=== PATIENT | male | born 1980 | race Caucasian/White ===

== ENCOUNTER 2020-03-22 15:28 | Outpatient (REF) | payer BC, SELFPAY | END 2020-03-22 15:29 | disposition home or self-care (01) | LOC: HO.LAB 15:28 | PROVIDERS: Visit Provider Internal Medicine | DX: Z20.828 Contact with and (suspected) exposure to other viral communicable diseases (principal) | CPT/HCPCS: C9803; U0003 ==

== ENCOUNTER 2020-04-09 06:29 | Outpatient (REF) | payer BC, SELFPAY | END 2020-04-09 06:30 | disposition home or self-care (01) | LOC: HO.LAB 06:29 | PROVIDERS: Visit Provider Internal Medicine | DX: Z20.828 Contact with and (suspected) exposure to other viral communicable diseases (principal) | CPT/HCPCS: C9803; U0003 ==

== ENCOUNTER 2021-05-03 06:51 | Emergency (ER) | payer OTHER, SELFPAY ==
--- NOTE | ~2021-05-03 | XR_ITS ---
EXAMINATION: XR SHOULDER, RIGHT CLINICAL INFORMATION: Shoulder pain COMPARISON: None TECHNIQUE: AP external rotation, Grashey, scapular Y, and axillary views of the right shoulder. FINDINGS: Postoperative changes with multiple suture anchors noted along the glenoid Bones joints and soft tissues otherwise unremarkable. XR/XR shoulder RT min 2V IMPRESSION: Postoperative change. No acute abnormality
[2021-05-03 07:11] VITALS: BP 105/65; PULSE 79; RESP 18; TEMP 36.8; O2SAT 96; BMI 20.4
--- NOTE | 2021-05-03 07:55 | ED.EXTPRO ---
HPI - Extremity Problem General Chief complaint: Extremity Injury, Upper Stated complaint: R SHOULDER PAIN QUEST PIN DISPLACED Time Seen by Provider: 05/03/21 07:55 Source: patient Mode of arrival: ambulatory Limitations: no limitations History of Present Illness HPI Narrative: 40-year-old male came in for evaluation of her right shoulder pain for the past 5 days. Pain started 5 days ago after was working out and lifting weight, pain is confined to the neck area radiating down to the back of the right scapula, patient is concerned because he had a previous surgery 8 years ago on right shoulder. Pain is worsening with movement on lifting his right arm above his head, patient otherwise declined any numbness or weakness in the right arm. No trauma to the neck except lifting weight 5 days ago. Related Data Allergies Allergy/AdvReac Type Severity Reaction Status Date / Time No Known Allergies Allergy Verified 05/03/21 07:11 Review of Systems Review of Systems: All other systems are reviewed and are negative Constitutional: Reports as per HPI and Reports no additional constitutional complaints Eyes: Reports as per HPI and Reports no additional eye complaints Reports system reviewed and no additional complaints, except as documented Cardiovascular: Reports as per HPI and Reports no additional cardiovascular complaints Respiratory: Reports as per HPI and Reports no additional respiratory complaints Gastrointestinal: Reports as per HPI and Reports no additional gastrointestinal complaints Genitourinary: Reports no additional female genitourinary complaints Musculoskeletal: Reports no additional musculoskeletal complaints Skin/Breast: Reports system reviewed and no additional complaints, except as docu Psychiatric: Reports no additional psychiatric complaints Endocrine: Reports no additional endocrine complaints Hematologic/Lymphatic: Reports no additional hematologic/lymphatic complaints Allergic/Immunologic: Reports no additional allergic/immunologic complaints Reports system reviewed and no additional complaints, except as documented and Reports Abnormal speech present [facility] Social History Social History Advance Directives: No Advance Directives Information Provided: Yes Physical Exam Vital Signs: Vital Signs: Last Vital Signs Temp 98.2 F 05/03/21 07:11 Pulse 79 05/03/21 07:11 Resp 18 05/03/21 07:11 BP 105/65 05/03/21 07:11 Pulse Ox 96 05/03/21 07:11 BMI result Body Mass Index 20.4 Vital signs have been reviewed as appeared to be correct. Blood pressure normal. Heart rate normal. Respiration rate normal. Temperature normal. Oxygen saturation normal. Appearance: Alert. Oriented X3. No acute distress. Head: Normal external exam. Normocephalic. Atraumatic. No Sim signs noted. No raccoon eyes noted Eyes: PERRLA. EOMI. Conjunctiva and sclera normal. Eyelids normal. ENT: TM's Normal. Pharynx normal. Uvula midline. Moist mucous membranes. No trismus noted. No drooling noted. No muffled voice noted. Neck: Normal inspection. Neck supple. FROM. No adenopathy. Thyroid Normal. No meningeal signs. No neck mass noted. CVS: Normal heart rate and rhythm. Heart sound normal. No murmurs noted. Pulses normal throughout. Respiratory: No respiratory distress. Painless inspiration. Breath sounds normal. No wheezes/rales/rhonchi noted. Chest nontender. No accessory muscle usage noted or decreased air movement noted. Abdomen: Soft and nontender. Bowel sounds normal in all 4 quadrants. No distention noted. No organomegaly noted. No visible injury noted. Back: No CVA tenderness. Full range of motion noted. Skin: Skin warm and dry. Normal skin color. Normal skin turgor. No rashes/lesions/lacerations noted. Extremities: Right Shoulder held in adduction position, full range of motion of the right shoulder no step-off, no deformity, pain is radiating from mid neck to the right upper scapular border increased pain when turning the head to the right side or the left side, able to elevate right shoulder above his head with no pain. Neuro: Oriented X 3. Cranial nerve exam: II-XII are grossly intact No motor deficit. No sensory deficit. Reflexes normal. Course Course Course Narrative: Assessment and plan. 40-year-old male came in with right shoulder pain physical exam is consistent with right cervical radiculopathy with no neurological deficit. Patient was instructed to apply heating pad, no heavy lifting or exercising for a month, NSAIDs every 6 hours for pain. And follow-up with his orthopedic surgeon in a week. MDM - Extremity (Nontraumatic) Imaging Data Right shoulder x-ray: Attestation: I personally reviewed and interpreted this imaging study as follows: Radiologist's impression: Postoperative change. No acute abnormality Discharge Plan Discharge Clinical Impression: Cervical radiculopathy Patient Disposition: Home, Self-Care Instructions: Cervical Radiculopathy (ED) Additional Instructions: No heavy lifting, no strenuous exercises for 1 month. Follow-up with your orthopedic surgeon. Use Motrin/Advil 200 mg every 6 hours if needed for pain. Referrals: Physician,None [Primary Care Provider] - 2 days
== END 2021-05-03 08:25 | disposition home or self-care (01) ==
PROVIDERS: Emergency Provider Emergency Medicine
DX: M54.12 Radiculopathy, cervical region (principal)
CPT/HCPCS: 73030; 99282; 99283

== ENCOUNTER 2021-06-30 21:58 | Emergency (ER) | payer OTHER, SELFPAY ==
--- NOTE | 2021-06-30 | ECG_ITS ---
Test Reason : chest pain Blood Pressure : / mmHG Vent. Rate : 075 BPM Atrial Rate : 075 BPM P-R Int : 126 ms QRS Dur : 090 ms QT Int : 394 ms P-R-T Axes : 087 077 074 degrees QTc Int : 439 ms Normal sinus rhythm ST elevation consider inferolateral injury or acute infarct ACUTE NE / STEMI Abnormal ECG When compared with ECG of 05-AUG-2019 21:18, ST now depressed in Anterior leads ST elevation now present in Lateral leads Referred By: Generic ED Physician Electronically Signed By:Kiran Leach
[2021-06-30 22:04] VITALS: BP 129/78; PULSE 60; RESP 18; TEMP 36.4; O2SAT 98
[2021-06-30 22:31] LABS: Hematocrit 49.8 % (42.0-52.0); Hemoglobin 16.9 g/dl (14.0-18.0); Mean Corpuscular HGB Conc 33.9 g/dl (31.0-36.0); Mean Corpuscular Hemoglobin 33.3 pg (27.0-33.0); Mean Corpuscular Volume 98.2 fL (80.0-98.0); Mean Platelet Volume 8.6 fL (9.4-12.4); Platelet Count 400 X10*3/uL (160-400); Red Blood Count 5.07 X10*6/uL (4.60-5.80); Red Cell Distribution Width 11.9 % (11.0-16.0)
--- NOTE | 2021-06-30 22:36 | ED_ITS ---
HPI - Chest Pain General Chief Complaint: Chest Pain Stated Complaint: chest pain,weakness,vomiting Time Seen by Provider: 06/30/21 22:28 Source: patient Mode of arrival: ambulatory Limitations: no limitations History of Present Illness HPI narrative: Patient comes to emergency room complaining of severe chest pain radiating towards the left arm. Patient states that earlier today he was napping, around 15:00 he woke up with chest pain. Patient arrives at 22:30 complaining of worsening symptoms. Patient denies any past medical history, patient admits to alcoholism and binge drinking earlier today. Denies using drugs. Related Data Allergies Allergy/AdvReac Type Severity Reaction Status Date / Time No Known Allergies Allergy Verified 06/30/21 22:04 Review of Systems Review of Systems: Constitutional : No Weight loss, No Fever, No Chills, No Night Sweats, No Fatigue, No Malaise ENT/Mouth : No Hearing loss, No Ear Pain, No Nasal Congestion, No Sinus Pain, No Hoarseness, No sore throat, No Rhinorrhea, No Swallowing Difficulty Eyes: No Eye Pain, No Swelling, No Redness, No Foreign Body, No Discharge, No Vision Changes Cardiovascular : Complaining of chest pain radiating towards the left arm, mild shortness of breath Respiratory : No Cough, No Sputum, No Wheezing, No Smoke Exposure, No Dyspnea Gastrointestinal : No Nausea, No Vomiting, No Diarrhea, No Constipation, No abdominal Pain, No Hematochezia, No Melena Genitourinary : no irregular bleeding, No Dysuria, No Urinary Frequency, No Hematuria, No Urinary Incontinence, No Urgency, No Flank Pain, No Urinary Flow Changes, No Hesitancy Musculoskeletal : No joint pain, No Myalgias, No Joint Swelling Skin : No Skin Lesions, No rash Neuro : No Weakness, No Numbness, No Paresthesias, No Loss of Consciousness, No Dizziness, No Headache Psych : No Anxiety/Panic, No Depression, No SI/HI/AH/VH, No Social Issues, Heme/Lymph: No Bruising, No Bleeding,No Lymphadenopathy Endocrine : No Polyuria, No Polydipsia, No Temperature Intolerance PMFSH Social History Social History Advance Directives: No Advance Directives Information Provided: No Physical Exam Vital Signs: Vital Signs: Last Vital Signs Temp 97.6 F 06/30/21 22:04 Pulse 60 06/30/21 22:04 Resp 18 06/30/21 22:04 BP 129/78 06/30/21 22:04 Pulse Ox 98 06/30/21 22:04 BMI result Body Mass Index 19.5 Const: Other: Appearance: Alert. Oriented X3. Looks uncomfortable, grabbing his chest Eyes: Pupils equal, round and reactive to light. ENT: Pharynx normal. Neck: Normal inspection. Neck supple. No lymph nodes noted. No crepitus CVS: Normal heart rate and rhythm. Pulses normal. Normal S1 and S2 Respiratory: No respiratory distress. Breath sounds normal. No Wheezing. No rales Abdomen: Soft and nontender. No rigidity. No distention. Skin: Mildly diaphoretic, pale Extremities: No lower extremity edema. No Lacerations. No Rash Neuro: Oriented X 3. No motor deficit. No sensory deficit. Moving all extermities. No slurred speech. Course Course Course Narrative: Patient's EKG in triage shows STEMI pattern, inferior/posterior. The cardiac catheterization lab has been has been contacted. Dr. Peters accepted the patient, patient will be going straight to the cardiac catheterization lab COVID swab pending EMS arrived to [facility] at 22:59 MDM - Chest Pain Lab Data Result diagrams: 06/30/21 22:19 06/30/21 22:19 Labs: Lab Results 06/30/21 06/30/21 06/30/21 Range/Units 22:19 22:19 22:19 WBC 33.5 H* (4.8-10.8) X10*3/uL RBC 5.07 (4.60-5.80) X10*6/uL Hgb 16.9 (14.0-18.0) g/dl Hct 49.8 (42.0-52.0) % MCV 98.2 H (80.0-98.0) fL MCH 33.3 H (27.0-33.0) pg MCHC 33.9 (31.0-36.0) g/dl RDW 11.9 (11.0-16.0) % Plt Count 400 (160-400) X10*3/uL MPV 8.6 L (9.4-12.4) fL Immature Gran % (Auto) Cancelled Neut % (Auto) Cancelled Lymph % (Auto) Cancelled Payette % (Auto) Cancelled Eos % (Auto) Cancelled Baso % (Auto) Cancelled Lymph # (Auto) Cancelled Payette # (Auto) Cancelled Eos # (Auto) Cancelled Baso # (Auto) Cancelled Abs Immat Gran (auto) Cancelled Absolute Neuts (auto) Cancelled Absolute Nucleated RBC 0.000 (0.0-0.012) X10*3/uL Nucleated RBC % (auto) 0.0 (0.0-0.2) /100WBC Neutrophils % (Manual) 94 H (45-73) % Band Neutrophils % 1 L (3-5) % Lymphocytes % (Manual) 3 L (20-40) % Monocytes % (Manual) 1 L (2-11) % Basophils % (Manual) 1 (0-2) % Abs Neuts (Manual) 31.8 H (2.0-8.3) X10*3/uL Lymphocytes # (Manual) 1.0 L (1.2-4.9) X10*3/uL Monocytes # (Manual) 0.3 (0.1-1.2) X10*3/uL Basophils # (Manual) 0.3 H (0.0-0.2) X10*3/uL Platelet Estimate NORMAL (NORMAL) Plt Morphology Comment NORMAL RBC Morphology NORMAL Sodium 139 (135-145) mmol/L Potassium 4.2 (3.3-5.1) mmol/L Chloride 101 (96-108) mmol/L Carbon Dioxide 16 L (22-29) mmol/L Anion Gap 26 H (12-20) BUN 15 (9-16) mg/dL Creatinine 1.11 (0.5-1.4) mg/dL Estim Creat Clear Calc 92.0 Estimated GFR > 60 Random Glucose 117 H (60-115) mg/dL Calcium 9.9 (8.4-10.2) mg/dL Total Bilirubin 0.7 (0.0-1.0) mg/dL Direct Bilirubin 0.3 (0.0-0.5) mg/dL AST 36 (5-37) U/L ALT 30 (0-40) U/L Alkaline Phosphatase 57 (39-117) U/L Troponin I High Sens 53.6 H (<3.5-35.0) ng/L Total Protein 8.1 H (6.5-8.0) g/dL Albumin 5.1 H (3.5-5.0) g/dL Discharge Plan Discharge Clinical Impression: ST elevation myocardial infarction (STEMI) Patient Disposition: [facility] Transfer Details: [facility] cardiac dental laboratory technician
[2021-06-30 22:38] VITALS: BMI 19.5
[2021-06-30] MEDS: Aspirin Enteric Coated 325 MG TABLET.DR PO (22:39)
[2021-06-30] MEDS: Ticagrelor 90 MG TABLET 180 MG PO (22:39)
[2021-06-30] MEDS: Heparin Sodium,Porcine 5,000 UNIT/ML VIAL 4000 UNIT IVPUSH (22:40)
[2021-06-30 22:42] LABS: Alanine Aminotransferase 30 U/L (0-40); Albumin Level 5.1 g/dL (3.5-5.0); Alkaline Phosphatase 57 U/L (39-117); Anion Gap 26 (12-20); Aspartate Amino Transferase 36 U/L (5-37); Bilirubin Direct 0.3 mg/dL (0.0-0.5); Bilirubin Total 0.7 mg/dL (0.0-1.0); Blood Urea Nitrogen 15 mg/dL (9-16); Calcium 9.9 mg/dL (8.4-10.2); Carbon Dioxide 16 mmol/L (22-29); Chloride 101 mmol/L (96-108); Estimated Glomerular Filt Rate > 60; Glucose Random 117 mg/dL (60-115); Potassium 4.2 mmol/L (3.3-5.1); Sodium 139 mmol/L (135-145); Total Protein 8.1 g/dL (6.5-8.0)
[2021-06-30 22:43] LABS: Troponin-I High Sensitivity 53.6 ng/L (<3.5-35.0)
[2021-06-30] MEDS: 0.9 % Sodium Chloride 1,000 ML 999 ML IVCONT (22:43)
--- NOTE | 2021-06-30 22:47 | PC.NURSE ---
PATIENT ACCEPTED TO [facility],M AWAITING EMS TRANSPORT, EMS STEMI STANDBY IS NOT HERE AT THIS TIME
[2021-06-30 22:48] LABS: WBC ABN SCTR FOR CBC 1
[2021-06-30 22:49] LABS: White Blood Count 33.5 X10*3/uL (4.8-10.8)
--- NOTE | 2021-06-30 22:49 | HE.PHANOTE ---
RE HEPARIN Patient in ED started on Heparin drip. Provider did not want PRN boluses, just initial bolus and drip. No labs ordered for patient, and weight was entered incorrectly in triage. I put in an order for STAT PTT (baseline) and had nurse change weight to 72.8 kg (from 74.8 kg). Pt being transffered to [facility] Thanks Chad Nguyen
[2021-06-30 22:52] LABS: Band Neutrophils Percent 1 % (3-5); Basophils Abs Manual 0.3 X10*3/uL (0.0-0.2); Basophils Percent Manual 1 % (0-2); Lymphocytes Percent Manual 3 % (20-40); Monocytes Absolute Manual 0.3 X10*3/uL (0.1-1.2); Monocytes Percent Manual 1 % (2-11); Neutrophils Absolute Manual 31.8 X10*3/uL (2.0-8.3); Neutrophils Percent Manual 94 % (45-73)
[2021-06-30 22:55] LABS: Platelet Estimate NORMAL (NORMAL); Platelet Morphology Comment NORMAL; RBC Morphology NORMAL
[2021-06-30] MEDS: Heparin Sodium,Porcine/1/2NS 25,000 UNIT/250 ML IV.SOLN 10.19 UNIT IVCONT (23:02)
[2021-06-30 23:06] LABS: INTERNATIONAL NORM RATIO 0.9 (0.9-1.1); Prothrombin Time 10.7 SEC (9.9-13.0)
[2021-06-30 23:07] VITALS: BP 132/82; PULSE 78; RESP 22; O2SAT 98
--- NOTE | 2021-06-30 23:15 | PC.NURSE ---
patient departed ED at this time. reports called to [facility], ALEXYS cunningham on M3.
[2021-06-30 23:18] LABS: COVID-19 Test Negative (Negative)
== END 2021-06-30 23:30 | disposition short-term general hospital (02) ==
PROVIDERS: Emergency Provider Emergency Medicine
DX: I21.11 ST elevation (STEMI) myocardial infarction involving right coronary artery (principal); F10.20 Alcohol dependence, uncomplicated; Z20.822 Contact with and (suspected) exposure to COVID-19
CPT/HCPCS: 36415; 80048; 80076; 84484; 85007; 85027; 85610; 87635; 93005; 96361; 96365; 96375; 99285

== ENCOUNTER 2023-02-09 08:21 | Emergency (ER) | payer SELFPAY ==
[2023-02-09 08:35] VITALS: BP 133/90; PULSE 85; RESP 16; TEMP 36.7; O2SAT 97; BMI 20.1
--- NOTE | 2023-02-09 08:35 | ED.GENADULT ---
HPI - General Adult General Chief complaint: Skin/Abscess/Foreign Body Stated complaint: R middle finger infection? Time Seen by Provider: 02/09/23 08:35 Source: patient Mode of arrival: ambulatory Limitations: no limitations History of Present Illness HPI narrative: This is a 42-year-old male presenting to the emergency department with right middle finger soreness. This has been going on for a few weeks, he reports he was doing singh few weeks ago and banged his finger, area was open, he reports intermittent redness and swelling to right hand particularly overlying the right middle finger. Denies fevers, chills, numbness, tingling. Related Data Previous Rx's Medication Instructions Recorded cephalexin 500 mg tablet 500 mg PO Q6H 7 days #28 tabs 02/09/23 Allergies Allergy/AdvReac Type Severity Reaction Status Date / Time No Known Allergies Allergy Verified 06/30/21 22:04 Review of Systems Review of Systems: Constitutional : No Weight loss, No Fever, No Chills, No Fatigue, No Malaise ENT/Mouth : No sore throat, No Rhinorrhea Eyes: No Eye Pain, No Swelling, No Redness Cardiovascular : No Chest Pain, No SOB, No Dyspnea on Exertion, No Orthopnea, No Edema, No Palpitations Respiratory : No Cough, No Sputum, No Wheezing Gastrointestinal : No Nausea, No Vomiting, No Diarrhea, No Constipation, No abdominal Pain, No Hematochezia, No Melena Genitourinary : No Dysuria, No Urinary Frequency, No Hematuria, Musculoskeletal : + joint pain, No Myalgias, + Joint Swelling Skin : No Skin Lesions, No rash Neuro : No Weakness, No Numbness, No Dizziness, No Headache Psych : No Anxiety/Panic, No Depression All other systems reviewed and are negative Yes all other systems are reviewed and are negative [facility] Past Medical History Attestation statement: The following information was validated with the patient. Source: old records reviewed and nursing notes reviewed Social History Social History Advance Directives: Yes Physical Exam ED Vital Signs: Vital Signs - 24 hr 02/09/23 08:35 Temperature 98.1 F Pulse Rate 85 Respiratory Rate 16 Blood Pressure 133/90 H Pulse Oximetry 97 Oxygen Delivery Method Room Air BMI result Body Mass Index 20.1 vss Appearance: Alert.? Oriented X3.? No acute distress.? Head: Normocephalic, atraumatic, no step-offs or deformities Eyes: Pupils equal, round and reactive to light.? CVS: Normal heart rate and rhythm.? Pulses normal.? Respiratory: No respiratory distress.? Breath sounds normal.? Abdomen: Soft and nontender.? Skin: Skin warm and dry.? Normal skin color.? Normal skin turgor.? Extremities: 5/5 strength to bilateral upper and lower extremities Full painless range of motion to bilateral upper extremity digits. Capillary refill less than 2 seconds to bilateral upper extremity fingers. Normal sensation distally. Mild erythema overlying right 3rd PIP joint. Normal strength to b/l UE. 2+ radial pules equal and b/l Back: No midline tenderness, no C-spine tenderness, full range of motion, no CVA tenderness bilaterally Neuro: Oriented X 3.? No motor deficit.? No sensory deficit. CN 2-12 intact Course Reevaluation(s) Reevaluation #1: Xray w/ fractures noted to tuft of 2nd distal phalanx and mildly displaced avulsion fracture along the dorsal and ulnar surface of the 5th distal phalanx, discuss these findings with patient over the phone , no abnormal findings of right middle finger. He states he likely broke these when he hammered into his hand he denies any pain associated with any of these extremities. He was given Orthopedic follow-up I advised him to call and schedule appointment.. Patient to be discharged home with orthopedic follow-up. Educated patient on diagnosis and treatment plan, answered all question, patient verbalizes understanding. At this time patient will be discharged home, advised to return with new or worsening symptoms. Educated on worrisome signs and symptoms and when to return. At this time I feel comfortable discharge home. Time: 09:37 Medical Decision Making Medical Decision Making [facility] Narrative: 899 42-year-old male presents with soreness to right 3rd digit times a few weeks. he states he is concerned it is infected physical exam significant for 5/5 strength to bilateral upper and lower extremities Full painless range of motion to bilateral upper extremity digits. Capillary refill less than 2 seconds to bilateral upper extremity fingers. Normal sensation distally. Mild erythema overlying right 3rd PIP joint. Normal strength to b/l UE. 2+ radial pules equal and b/l this is likely a callus with mild overlying cellulitis due to cracks in overlying skin. No signs of septic joint, neurovascular compromise. Unlikely fracture dislocation. No signs of necrotizing infection. no signs of abscess. Plan will obtain an x-ray and discharge Keflex Differential Diagnosis Differential Diagnoses: The differential diagnosis associated with the presentation includes this is likely a callus with mild overlying cellulitis due to cracks in overlying skin. No signs of septic joint, neurovascular compromise. Unlikely fracture dislocation. No signs of necrotizing infection. no signs of abscess. Admission/Observation Consideration of admission/observation: Escalation of care including admission/observation considered no indication Independent Interpretation I performed an independent interpretation of an: Plain X-Ray (XR/XR hand RT min 3V IMPRESSION: 1. Minimally displaced comminuted fracture at the tuft of the second distal phalanx. 2. Mildly displaced avulsion fracture along the dorsal and ulnar surface of the fifth distal phalanx with intra-articular extension. 3. Chronic appearing deformity in the dorsal w) Radiology Impression Discussion of test interpretation with radiology: I have reviewed the radiologist's reading. Prescription Management I considered prescription management with: Antibiotic Chronic Conditions Patient?s care impacted by: Other (CAD) Critical Care Time Critical Care Time Critical Care Time: No Discharge Plan Discharge Clinical Impression: Pain of right middle finger, Callus Patient Disposition: Home, Self-Care Additional Instructions: Take your medications as prescribed. If you were prescribed antibiotics today, it is important that you take your medication to their entirety, do not skip any doses, do not finish them early. Follow-up with your primary care provider this week. Return to the emergency department with new or worsening symptoms. Such as fevers, chills, chest pain, shortness of breath, nausea, vomiting, dizziness, headache, vision changes, lethargy In case of emergency call 911 Follow-up with the orthopedic team if the pain persists Prescriptions: New cephalexin 500 mg tablet 500 mg PO Q6H 7 Days Qty: 28 0RF Referrals: Anthony Parry MD [Primary Care Provider] - 2 days Stand Alone Forms: Work/School Release Interventions: ED Discharge Assessment Last Done: 02/09/23 09:48 Discharge Date/Time: 02/09/23 09:49
== END 2023-02-09 09:49 | disposition home or self-care (01) ==
PROVIDERS: Emergency Provider Student in an Organized Health Care Education/Training Program; PCP Internal Medicine
DX: L84 Corns and callosities (principal); M79.641 Pain in right hand
CPT/HCPCS: 73130; 99282; 99283